=== PATIENT | female | born 1985 | race Caucasian/White ===

== ENCOUNTER 2019-05-22 22:26 | Emergency (ER) | payer SELFPAY ==
[~2019-05-22] VITALS: Ht 154.9 cm; Wt 68.0 kg
[2019-05-22 22:26] VITALS: BP 150/59
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
--- NOTE | 2019-05-22 22:26 | NUR ---
PT BIB [facility], PREBOOK. TAKEN TO CHAIR E
--- NOTE | 2019-05-22 23:39 | NUR ---
Dr. Royal examining patient.
[2019-05-22 23:50] VITALS: BP 148/61
--- NOTE | 2019-05-22 23:50 | NUR ---
PATIENT EXAMINED BY DR. DR GRAJEDA. PATIENT MEDICALLY CLEARED AND RELEASED IN CUSTODY IN STABLE CONDITION. ORIGINAL PRE-BOOK FORM GIVEN TO [facility].
== END 2019-05-22 23:50 ==
LOC: MED 22:26
DX: Z00.00 Encounter for general adult medical examination without abnormal findings (principal); V89.2XXA Person injured in unspecified motor-vehicle accident, traffic, initial encounter; Y93.89 Activity, other specified; Y92.410 Unspecified street and highway as the place of occurrence of the external cause; Y99.8 Other external cause status
CPT/HCPCS: 99283